=== PATIENT | male | born 1990 | race Caucasian/White ===

== ENCOUNTER 2020-09-03 09:45 | Outpatient (RCR) | payer OTHER, SELFPAY ==
[2020-08-09 13:44] VITALS: BMI 35.9
--- NOTE | 2020-08-09 14:43 | PC.ADMIT ---
Patient is a 30 year old male who started the PHP program today. He was referred from [facility] APTU unit where he was admitted s/p overdose on unknown amounts of Seroquel, Prozac, and Methadone secondary to breakup with girlfriend of 1 year whom he lives with. Per [facility] records Prior to coming to the hospital patient was given Narcan and went into Methadone withdrawal. Patient became combative and was given a medication restraint which was ineffective. Patient was intubated as a result for safe transfer to the ER. Toxicology screen negative. Patient transferred to [facility] then [facility] for stabilization. Patient is alert and oriented x4. Calm and cooperative, appears motivated for treatment. Patient stated her feels, stupid regarding OD attempt and stated he did not want to . Pt has HX of multiple SA and was hospitalized at [facility] in the past year. Patient has a HX of IV heroin and cocaine use, last use in October 2019. Is on Methadone maintenance. Patient attending weekly substance use groups and was encouraged to increase attendance while attending [facility] for more support. Patient reports HX of accidental OD on Heroin in 2014 and 2018. HX of Narcan x 3. Medications reconciled with [facility] discharge paperwork and patient. Reports taking medication as prescribed. Patient reconciled with his girlfriend. Patient is staying with his parents during the day and with his girlfriend when she gets home from work for continued stabilization as pt stated the area where he lives with his girlfriend is not a good area and could trigger ETOH use. Completed via telephone d/t program platform.
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
--- NOTE | 2020-08-15 15:27 | PC.NURSE ---
I called and spoke to pt about aftercare. He plans to call [facility] for a therapist. He said he will call after we get off the phone. He has a first time appt with Linus Forman NP for medication management at [facility] [place]note 2] at 10am on 08/20/2020 so he will not be in attendance at PHP that day. He declined a referral for a substance use IOP, and asked instead for a referral to a mental health IOP. I told him we have a mental health PHP, and he said he'd like to do that. So the plan is to step pt down to IOP after he completes his PHP days. Pt said the program is going well, but that he is struggling with his sleep routine and with focus.
--- NOTE | 2020-08-16 13:20 | P.PNPSP_ITS ---
Subjective Subjective Date of Service: 08/16/20 Reason For Visit: depression Interim History: PATIENT HAS BEEN ATTENDING THE PARTIAL HOSPITAL PROGRAM HAS BEEN SOBER FUTURE ORIENTED NOT OVERLY DEPRESSED. HAS FELT BETTER SINCE HIS HOSPITALIZATION AND HAS BEEN STARTED ON TRILEPTAL. HE RELATES A HISTORY OF HYPOMANIA PATIENT HAS BEEN ON 300 MG TWICE A DAY VENLAFAXINE 75 MG DAILY CONTINUES ON METHADONE. FEELS PARTIAL HOSPITAL HAS BEEN HELPFUL. NO SELF- HARMING THOUGHTS MOOD STABLE. FEELING SIGNIFICANTLY BETTER THINKS THAT CURRENT MEDICATION REGIMEN IS HELPFUL Medication Compliance: Yes Side effects from medications: No Attending Groups: Yes Mental Status Exam Mental Status Exam Patient Orientation: Person, Place, Time and Situation Level of Consciousness: Awake and Alert Patient Behavior: Appropriate Behavior Comments: DENIES SIGNIFICANT DEPRESSIVE SYMPTOMS SLEEP APPETITE [place] NO PSYCHOTIC SYMPTOMS NO THOUGHTS OF HARM TO HIMSELF FOR OTHERS IMPULSE CONTROL INTACT DRUG OF CHOICE ALCOHOL HAS BEEN SOBER SOME WORRY REGARDING FUTURE IN RELATIONSHIP TO LEGAL CHARGES Mood Description: Calm and Anxious Diagnostics Vital Signs (24Hr): Body Mass Index 35.9 Assessment & Plan Assessment & Plan (1) Bipolar 2 disorder: Status: Acute Code(s): F31.81 - Bipolar II disorder (2) Opioid use disorder, moderate, in early remission, on maintenance therapy, dependence: Status: Acute Code(s): F11.21 - Opioid dependence, in remission Assessment and Plan: CONTINUE METHADONE AND CAMPRAL FOR ALCOHOL AND OPIATE USE DISORDER. PATIENT SOBER FEELING STABLE CONTINUE EFFEXOR AND TRILEPTAL. CONTINUE PARTIAL HOSPITAL TREATMENT FEELS STRATEGIES IN GROUP THERAPY HAVE BEEN HELPFUL. HE IS REMORSEFUL REGARDING OVERDOSE Certification I certify that partial hospital treatment is medically necessary due to the symptoms and problems resulting from the patient's mental illness and the failure to treat the patient at the partial hospital level of care would likely result in the patient requiring inpatient psychiatric care which could not be prevented at a less intensive level of care. Greater than 50% of the session was spent on counseling and/or coordination of care Discharge Plan Discharge Attending provider: Rc Rodriguez Medications: No Action venlafaxine 75 mg Capsule,Extended Release 24hr 75 mg PO DAILY RF: 0 nicotine (polacrilex) 2 mg Gum 2 mg BUCCAL Q4H RF: 0 oxcarbazepine 300 mg Tablet 300 mg PO BID RF: 0 amlodipine 5 mg Tablet 5 mg PO BEDTIME RF: 0 pantoprazole 40 mg Tablet,Delayed Release (Dr/Ec) 40 mg PO DAILY RF: 0 nicotine 21 mg/24 hr Patch 24 Hour 1 patch TRANSDERMAL DAILY RF: 0 acamprosate 333 mg Tablet,Delayed Release (Dr/Ec) 666 mg PO TID RF: 0 methadone 10 mg/5 mL Solution 105 mg PO DAILY RF: 0
--- NOTE | 2020-08-23 14:58 | HO.PHPPROGNO ---
Subjective Subjective Reason For Visit: depression Interim History: Patient has been feeling generally stable no elevated mood states or depressive states. He is on Cymbalta and Trileptal. He does feel somewhat fuzzy during the day with some short-term memory difficulty. He is worried he might have had cognitive impairment status post overdose. The patient is also on methadone. Mental Status Exam Mental Status Exam Patient Appearance: Well Grooomed Patient Orientation: Person, Place, Time and Situation Level of Consciousness: Awake and Alert Patient Behavior: Appropriate Behavior Comments: DENIES SIGNIFICANT DEPRESSIVE SYMPTOMS SLEEP APPETITE [place] NO PSYCHOTIC SYMPTOMS NO THOUGHTS OF HARM TO HIMSELF FOR OTHERS IMPULSE CONTROL INTACT DRUG OF CHOICE ALCOHOL HAS BEEN SOBER Mood Description: Calm and Anxious Patient Cognition Impaired: No Ability to Follow Directions: Excellent Speech Pattern: Clear and Spontaneous Speech Memory Description: Remote Impaired (s/p OD) and Working Impaired Hallucinations: None Thought Process: Intact Thought Content: positive for Poverty of Content Diagnostics Vital Signs (24Hr): Body Mass Index 35.9 Assessment & Plan Assessment & Plan (1) Bipolar 2 disorder: Status: Acute Code(s): F31.81 - Bipolar II disorder (2) Opioid use disorder, moderate, in early remission, on maintenance therapy, dependence: Status: Acute Code(s): F11.21 - Opioid dependence, in remission Assessment and Plan: change Trileptal to bedtime 600 mg would get electrolytes on Trileptal and Effexor check serum sodium Consider lowering methadone consider it may be interfering with cognition Certification I certify that partial hospital treatment is medically necessary due to the symptoms and problems resulting from the patient's mental illness and the failure to treat the patient at the partial hospital level of care would likely result in the patient requiring inpatient psychiatric care which could not be prevented at a less intensive level of care. Greater than 50% of the session was spent on counseling and/or coordination of care Discharge Plan Discharge Attending provider: Rc Rodriguez Medications: No Action venlafaxine 75 mg Capsule,Extended Release 24hr 75 mg PO DAILY RF: 0 nicotine (polacrilex) 2 mg Gum 2 mg BUCCAL Q4H RF: 0 oxcarbazepine 300 mg Tablet 300 mg PO BID RF: 0 amlodipine 5 mg Tablet 5 mg PO BEDTIME RF: 0 pantoprazole 40 mg Tablet,Delayed Release (Dr/Ec) 40 mg PO DAILY RF: 0 nicotine 21 mg/24 hr Patch 24 Hour 1 patch TRANSDERMAL DAILY RF: 0 acamprosate 333 mg Tablet,Delayed Release (Dr/Ec) 666 mg PO TID RF: 0 methadone 10 mg/5 mL Solution 105 mg PO DAILY RF: 0
--- NOTE | 2020-08-27 14:02 | PC.NURSE ---
Pt assigned to IOP group, engaged in telehelth group session this afternoon with limited participation, no insights provided
--- NOTE | 2020-08-30 13:54 | HO.PSYCHPN ---
Subjective Subjective Reason For Visit: depression Diagnostics Vital Signs (24Hr): Body Mass Index 35.9 Medications Allergies Allergies Allergy/AdvReac Type Severity Reaction Status Date / Time No Known Allergies Allergy Verified 08/09/20 08:29 Assessment & Plan Assessment & Plan (1) Opioid use disorder, moderate, in early remission, on maintenance therapy, dependence: Status: Acute Code(s): F11.21 - Opioid dependence, in remission Assessment and Plan: continue methadone encourage sobriety PHP patient goes to group and sees a counselor at methadone maintenance (2) Bipolar 2 disorder: Status: Acute Code(s): F31.81 - Bipolar II disorder Assessment and Plan: continue Trileptal 600 at bedtime patient feels stable at this dose consider increase as needed (3) Alcohol use disorder: Status: Acute Assessment and Plan: on Campral courage coping strategies patient states he remains sober has not found 12 step helpful in the past Greater than 50% of the session was spent on counseling and/or coordination of care Patient educated on: medication risk/benefits, substance abuse and therapeutic strategies Informed Consent: understands
--- NOTE | 2020-09-02 14:43 | P.PNPSP_ITS ---
Subjective Subjective Date of Service: 08/30/20 Reason For Visit: depression Interim History: THE PATIENT REMAINS SOBER AND STABLE. SLEEP HAS IMPROVED WITH TRILEPTAL 600 MG AT BEDTIME. DENIES ANY CYCLING NO SIGNIFICANT DEPRESSIVE OR HYPOMANIC EPISODES. CONTINUES TO FEEL PARTIAL HOSPITAL IS HELPFUL Medication Compliance: Yes Mental Status Exam Mental Status Exam Narrative: THE PATIENT SOBER STABLE DENIES CURRENT CRAVINGS Patient Appearance: Well Grooomed Patient Orientation: Person, Place, Time and Situation Level of Consciousness: Awake and Alert Patient Behavior: Appropriate Mood Description: Calm and Appropriate Affect Description: Calm Patient Cognition Impaired: No Ability to Follow Directions: Excellent Speech Pattern: Clear and Spontaneous Speech Memory Description: Remote Impaired (s/p OD) Delusions: Not Present Thought Process: Intact Thought Content: positive for Intact Diagnostics Vital Signs (24Hr): Body Mass Index 35.9 Assessment & Plan Assessment & Plan (1) Opioid use disorder, moderate, in early remission, on maintenance therapy, dependence: Status: Acute Code(s): F11.21 - Opioid dependence, in remission Assessment and Plan: continue methadone encourage sobriety PHP patient goes to group and sees a counselor at methadone maintenance (2) Bipolar 2 disorder: Status: Acute Code(s): F31.81 - Bipolar II disorder Assessment and Plan: continue Trileptal 600 at bedtime patient feels stable at this dose consider in crease as needed (3) Alcohol use disorder: Status: Acute Assessment and Plan: on Campral courage coping strategies patient states he remains sober has not found 12 step helpful in the past Certification I certify that partial hospital treatment is medically necessary due to the symptoms and problems resulting from the patient's mental illness and the failure to treat the patient at the partial hospital level of care would likely result in the patient requiring inpatient psychiatric care which could not be prevented at a less intensive level of care. Greater than 50% of the session was spent on counseling and/or coordination of care Discharge Plan Discharge Attending provider: Rc Rodriguez Medications: No Action venlafaxine 75 mg Capsule,Extended Release 24hr 75 mg PO DAILY RF: 0 nicotine (polacrilex) 2 mg Gum 2 mg BUCCAL Q4H RF: 0 oxcarbazepine 300 mg Tablet 300 mg PO BID RF: 0 amlodipine 5 mg Tablet 5 mg PO BEDTIME RF: 0 pantoprazole 40 mg Tablet,Delayed Release (Dr/Ec) 40 mg PO DAILY RF: 0 nicotine 21 mg/24 hr Patch 24 Hour 1 patch TRANSDERMAL DAILY RF: 0 acamprosate 333 mg Tablet,Delayed Release (Dr/Ec) 666 mg PO TID RF: 0 methadone 10 mg/5 mL Solution 105 mg PO DAILY RF: 0
--- NOTE | 2020-09-03 23:20 | P.PNPSP_ITS ---
Subjective Subjective Date of Service: 09/04/20 Reason For Visit: depression Interim History: pt stable future oriented safe for d/c Mental Status Exam Mental Status Exam Narrative: THE PATIENT SOBER STABLE DENIES CURRENT CRAVINGS Patient Appearance: Well Grooomed Patient Orientation: Person, Place, Time and Situation Level of Consciousness: Awake and Alert Patient Behavior: Appropriate Mood Description: Calm and Appropriate Affect Description: Calm Patient Cognition Impaired: No Ability to Follow Directions: Excellent Speech Pattern: Clear and Spontaneous Speech Memory Description: Remote Impaired (s/p OD) Delusions: Not Present Thought Process: Intact Thought Content: positive for Intact Diagnostics Vital Signs (24Hr): Body Mass Index 35.9 Assessment & Plan Assessment & Plan (1) Alcohol use disorder: Status: Acute (2) Opioid use disorder, moderate, in early remission, on maintenance therapy, dependence: Status: Acute Code(s): F11.21 - Opioid dependence, in remission (3) Bipolar 2 disorder: Status: Acute Code(s): F31.81 - Bipolar II disorder Assessment and Plan: patient remains sober stated committed to sy mood stable future oriented on Campral Trileptal fluoxetine felt partial hospital was quite helpful no self- harming thoughts was able to relate strategies for sobriety Certification I certify that partial hospital treatment is medically necessary due to the symptoms and problems resulting from the patient's mental illness and the failure to treat the patient at the partial hospital level of care would likely result in the patient requiring inpatient psychiatric care which could not be prevented at a less intensive level of care. Greater than 50% of the session was spent on counseling and/or coordination of care Discharge Plan Discharge Attending provider: Rc Rodriguez Medications: No Action venlafaxine 75 mg Capsule,Extended Release 24hr 75 mg PO DAILY RF: 0 nicotine (polacrilex) 2 mg Gum 2 mg BUCCAL Q4H RF: 0 oxcarbazepine 300 mg Tablet 300 mg PO BID RF: 0 amlodipine 5 mg Tablet 5 mg PO BEDTIME RF: 0 pantoprazole 40 mg Tablet,Delayed Release (Dr/Ec) 40 mg PO DAILY RF: 0 nicotine 21 mg/24 hr Patch 24 Hour 1 patch TRANSDERMAL DAILY RF: 0 acamprosate 333 mg Tablet,Delayed Release (Dr/Ec) 666 mg PO TID RF: 0 methadone 10 mg/5 mL Solution 105 mg PO DAILY RF: 0
--- NOTE | 2020-09-04 14:57 | PC.NURSE ---
I tried to call pt to review his discharge yesterday and today, and he did not answer the phone or call back.
== END 2020-09-03 23:55 | disposition home or self-care (01) ==
LOC: HO.PHPA 09:45
PROVIDERS: Visit Provider Psychiatry & Neurology Psychiatry
DX: F31.81 Bipolar II disorder (principal); F11.21 Opioid dependence, in remission; Z72.89 Other problems related to lifestyle
CPT/HCPCS: 90792; 90853; 99212; 99213